=== PATIENT | female | born 1980 | race Two or more races ===

== ENCOUNTER 2017-09-28 05:56 | Day surgery (SDC) | payer OTHER ==
[~2017-09-28 05:56] MED LIST: NIFE60TA3 PO
== END 2017-09-28 13:20 | disposition home or self-care (01) ==
LOC: CIR.AMB 05:56
DX: D17.1 Benign lipomatous neoplasm of skin and subcutaneous tissue of trunk (principal)

== ENCOUNTER 2018-08-11 18:57 | Emergency (ER) | payer OTHER ==
[~2018-08-11] VITALS: Ht 167.6 cm; Wt 114.3 kg
== END 2018-08-11 20:25 | disposition home or self-care (01) ==
LOC: ER 18:57
DX: B34.9 Viral infection, unspecified (principal)

== ENCOUNTER 2019-06-05 05:30 | Day surgery (SDC) | payer OTHER | END 2019-06-05 17:06 | disposition home or self-care (01) | LOC: CIR.AMB 05:30 → ADM 11:00 → CIR.AMB 11:00 | DX: N84.0 Polyp of corpus uteri (principal) ==

== ENCOUNTER 2021-05-27 11:57 | Outpatient (CLI) | payer OTHER | END 2021-05-27 12:05 | disposition home or self-care (01) | LOC: MAMO-SONO 11:57 | PROVIDERS: ATTEND Obstetrics & Gynecology | DX: N63 Unspecified lump in breast (principal); N64.59 Other signs and symptoms in breast; N64.9 Disorder of breast, unspecified ==

== ENCOUNTER 2023-02-19 20:27 | Emergency (ER) | payer OTHER ==
[~2023-02-19] VITALS: Ht 167.6 cm; Wt 113.4 kg
[~2023-02-19 20:27] MED LIST changes: +HYDROCHLOROTH12.5 MG PO; +NIFEDIPINE20 MG
== END 2023-02-19 21:30 | disposition home or self-care (01) ==
LOC: ER 20:27
DX: J45.901 Unspecified asthma with (acute) exacerbation (principal); J10.1 Influenza due to other identified influenza virus with other respiratory manifestations; E87.6 Hypokalemia; Z20.822 Contact with and (suspected) exposure to COVID-19; Z88.2 Allergy status to sulfonamides

== ENCOUNTER 2024-06-15 11:52 | Emergency (ER) | payer OTHER ==
[~2024-06-15] VITALS: Ht 167.6 cm; Wt 113.4 kg
[2024-06-15] MEDS ORDERED: NORVASC2.5 M1 PO (12:44)
[2024-06-15] MEDS ORDERED: 0.9 % SODIUM CHLORIDE 1,000 ML IV ONE (13:30)
[2024-06-15] MEDS ORDERED: FAMOtidine 10 MG/ML (4ML VIAL) IV ONE (13:30)
[2024-06-15] MEDS ORDERED: ACETAMINOPHEN 325 MG TABLET PO ONE ×2 (13:30→13:38)
[2024-06-15] MEDS ORDERED: DICYCLOMINE HCL 20 MG TABLET PO ONE (13:30)
[2024-06-15] MEDS ORDERED: ONDANSETRON HCL 2 MG/ML VIAL IV ONE (13:30)
[2024-06-15] MEDS ORDERED: ONDANSETRON HCL 2 MG/ML VIAL ONE (13:38)
[2024-06-15] MEDS ORDERED: DICYCLOMINE HCL 10 MG CAPSULE PO ONE (13:38)
[2024-06-15] MEDS ORDERED: FAMOTIDINE/PF 20 MG/2 ML VIAL ONE (13:39)
[2024-06-15 14:48] LABS: HEMATOCRIT 37.4 % (36.0-45.00); HEMOGLOBIN 11.5 g/dL (12.0-15.00); MEAN CELL VOLUME 69.3 fL (80.00-100.00); MEAN CORPUSCULAR HEMOGLOBIN 21.3 pg (27.00-32.0); MEAN CORPUSCULAR HGB CONC 30.8 g/dl (32.0-36.0); PLATELET COUNT 251 K/uL (150-450); RED CELL DISTRIBUTION WIDTH 17.4 % (11.5-14.5)
[2024-06-15] MEDS ORDERED: OSEL75CA PO (15:48)
[2024-06-15] MEDS ORDERED: PEPCID AC20 MG PO (15:48)
[2024-06-15] MEDS ORDERED: ZOFRAN8 MG PO (15:48)
[2024-06-15 16:24] LABS: ALBUMIN 3.6 gm/dL (3.4-5.0); BILIRUBIN TOTAL 0.42 mg/dL (0.3-1.2); CALCIUM 8.7 mg/dL (8.5-10.1); CREATININE SERUM 0.81 mg/dL (0.55-1.02); GFR 76.46; POTASSIUM 4.53 mEq/L (3.5-5.1); TOTAL PROTEIN 7.6 gm/dL (6.4-8.2)
== END 2024-06-15 16:18 | disposition home or self-care (01) ==
LOC: ER 11:54
PROVIDERS: General Practice
DX: R53.81 Other malaise (principal); R11.2 Nausea with vomiting, unspecified; J10.1 Influenza due to other identified influenza virus with other respiratory manifestations; Z20.822 Contact with and (suspected) exposure to COVID-19; I10 Essential (primary) hypertension; E11.9 Type 2 diabetes mellitus without complications